=== PATIENT | male | born 1985 | race Caucasian/White ===

== ENCOUNTER → 2024-05-20 08:59 | Outpatient (BNVA) | payer SELFPAY | PROVIDERS: PCP Nurse Practitioner Family; Visit Provider Nurse Practitioner Family | DX: M79.643 Pain in unspecified hand (principal); M79.89 Other specified soft tissue disorders; M25.539 Pain in unspecified wrist; M25.439 Effusion, unspecified wrist | CPT/HCPCS: 73110; 73130 ==

== ENCOUNTER → 2024-11-16 09:14 | Outpatient (BNVA) | payer MEDICAID, SELFPAY | PROVIDERS: PCP Clinical Nurse Specialist Adult Health; Visit Provider Clinical Nurse Specialist Adult Health | DX: M23.92 Unspecified internal derangement of left knee (principal) | CPT/HCPCS: 73562 ==

== ENCOUNTER 2024-11-22 13:20 | Emergency (ER) | payer MEDICAID, SELFPAY ==
[2024-11-22] VITALS (8 sets, daily range): BP systolic 137–182; BP diastolic 87–115; PULSE 52–82; RESP 15–19; TEMP 36.4; O2SAT 95–99; BMI 34.8
[2024-11-22 14:26] LABS: Basophils # 0.1 10^3/uL (0.0-0.1); Basophils % 0.4 %; Eosinophils % 0.1 %; Hematocrit 44.2 % (37-53); Lymphocytes # 1.3 10^3/uL (0.8-4.8); Lymphocytes % 9.5 %; Mean Corpuscular HGB Conc 33.9 g/dL (30-55); Mean Corpuscular Hemoglobin 30.8 pg (27-33); Mean Corpuscular Volume 90.8 fl (82-101); Mean Platelet Volume 9.4 fL (7.4-10.4); Monocytes # 0.3 10^3/uL (0.2-0.9); Monocytes % 2.3 %; Neutrophils # 12.28 10^3/uL (1.8-7.7); Neutrophils % 87.3 %; Nucleated Red Blood Cells % 0 %; Platelet Count 329 10^3/cmm (157-399); Red Blood Count 4.87 10^6/uL (3.85-5.65); Red Cell Distribution Width 12.2 % (12.1-15.1); White Blood Count 14.07 10^3/uL (3.29-11.43)
[2024-11-22 14:44] LABS: Alanine Aminotransferase 30 U/L (0-41); Albumin Level 4.9 g/dL (3.5-5.2); Alkaline Phosphatase 62 U/L (40-130); Anion Gap 18.1 (5-19); Aspartate Amino Transferase 16 U/L (0-40); Blood Urea Nitrogen 12 mg/dL (6-20); Calcium 9.5 mg/dL (8.5-10.5); Carbon Dioxide 23 mmol/L (22-29); Chloride 103 mmol/L (98-107); Creatinine Clr Calc Pharmacy 183.2341; Globulin 3.1 g/dL (1.3-4.6); Glomerular Filtration Rate 126.2 mL/min (90-130); Glucose 128 mg/dL (65-115); Lipase 17 U/L (13-60); Osmolality Calculated 291 mOsm/kg (285-295); Potassium 4.1 mmol/L (3.5-5.1); Sodium 140 mmol/L (136-145); Total Bilirubin 0.8 mg/dL (0.15-1.2)
[2024-11-22] MEDS: sodium chloride 0.9% 1,000 ML 999 ML IV (14:45)
[2024-11-22] MEDS: ondansetron 2 mg/ML SDV 2 mL 4 MG IVP (14:46)
[2024-11-22] MEDS: morphine 4 mg/mL SDV 1 mL IVP (14:47)
--- NOTE | 2024-11-22 14:49 | ED_ITS ---
HPI - Nausea/Vomiting/Diarrhea 2 General: Chief complaint: Nausea/Vomiting/Diarrhea Stated complaint: dizziness, n/v Time Seen by Provider: 11/22/24 13:38 History of Present Illness: 39-year-old male with a history of appen dectomy, obesity, and untreated hypertension who presents emergency department with 12 hours of nausea, vomiting, diarrhea, subjective fever with chills, body aches, headache, mild cough. His significant other is not ill at this point. They have not traveled. They ate the same food yesterday. No chronic abdominal illnesses. Diarrhea is nonbloody and has occurred 4-5 times today. He has not been able to tolerate fluids yet today. He is feeling a bit dehydrated and fatigued. He does endorse abdominal cramping. No sore throat, ear pain, sinus congestion, chest pain, rashes or wounds. Associated symtoms: Denies altered mental status Related Data Previous Rx's ?Medication ?Instructions ?Recorded clobetasol 0.05 % topical cream 1 applic topical DAILY 2 weeks #45 11/12/24 grams diclofenac sodium 1 % topical gel 2 g topical QID #100 grams 11/12/24 (Voltaren Arthritis Pain) dicyclomine 20 mg tablet 20 mg PO QID PRN abdominal p ain 11/22/24 #12 tabs loperamide 2 mg capsule 2 mg PO Q6H PRN loose stool #20 11/22/24 caps ondansetron 4 mg disintegrating 4 mg PO Q6H PRN nausea and 11/22/24 tablet vomiting #14 tabs Allergies Allergy/AdvReac Type Severity Reaction Status Date / Time coconut Allergy Severe ALGY-Anaphy Verified 11/12/24 13:08 laxis Review of Systems 2 General: Reports: 10 or more systems reviewed and unremarkable except in HPI and below PFSH ED 2 PFSH: Medical History (Updated 11/22/24 @ 15:54 by Coy Garcia MD) Nicotine dependence with current use Internal derangement of left knee Eczema Surgical History (Updated 07/22/24 @ 09:19 by Gerardo Douglas NP) Hx of tonsillectomy Hx of appendectomy Family History (Updated 11/12/24 @ 13:38 by Gerardo Douglas NP) Other Breast cancer COPD (chronic obstructive pulmonary disease) Diabetes Hyperlipidemia Hypertension Pancreatitis Denies family history of Anesthesia complication Social History (Updated 11/12/24 @ 13:40 by Gerardo Douglas NP) Smoking and tobacco/nicotine status: current every day tobacco/nicotine user cigarettes Packs smoked per day: 1 [ Other cigarette details: > 20 years pack history] Alcohol intake: never Substance/Drug Use: never Adopted: No Caregiver/support person: No Lives independently: Yes Household members: family Housing: House Marital status: Life Partner Number of children: 4 Highest education level completed: Associate Degree: Occupational, Technical, Vocational Program service: No Current occupational status: unemployed Physical Exam 2 Narrative: EXAM NARRATIVE: Ill but nontoxic. Slight diaphoresis on the forehead. Const: COMMON NORMALS: no limitations, alert and well nourished EXAM LIMITATIONS: no altered mental status HENMT: COMMON NORMALS: normocephalic, atraumatic and external ears normal H EAD & SCALP: normocephalic and atraumatic EXTERNAL EAR: Yes external ears normal MOUTH: no muffled voice Eye: COMMON NORMALS: EOMs intact bilaterally, conjunctivae normal and no scleral icterus CONJUNCTIVA: Yes conjunctivae normal Neck/C-Spine: COMMON NORMALS: no JVD GENERAL: Yes normal visual inspection and Yes trachea midline Resp: COMMON NORMALS: normal respiratory effort, No use of accessory muscles and clear to auscultation bilaterally AUSCULTATION: clear to auscultation bilaterally Cardio: COMMON NORMALS: no JVD, regular rate and regular rhythm RATE: r egular rate RHYTHM: regular rhythm GI: COMMON NORMALS: Soft to palpation and no masses PALPATION: Yes Soft to palpation, Yes Tenderness to palpation present (GI) (Mild diffuse, slightly worse in the upper half of the abdomen.), No Guarding due to palpation present (GI), No Rigid due to palpation, No Hernia present, No Palpable mass present, No Pulsatile mass present and No Ascites present Extremity: COMMON NORMALS: normal to inspection Neuro: COMMON NORMALS: moves all extremities, no focal motor deficits and no sensory deficits noted SENSORIUM/ORIENTATION: Yes alert SPEECH: speech normal Psych: COMMON NORMALS: mental status grossly normal, Normal thought process present, cooperative, normal affect and speech normal SPEECH: Yes normal speech THOUGHT PROCESS: Normal thought process present Skin: COMMON NORMALS: no rashes or lesions noted, turgor normal and no jaundice GENERAL SKIN EXAM: no rashes or lesions noted and turgor normal Course 2 Vital Signs: Vital signs: Vital Signs Temperature 97.5 F L 11/22/24 13:31 Pulse Rate 82 11/22/24 13:31 Respiratory Rate 16 11/22/24 14:47 Blood Pressure 146/113 11/22/24 15:21 Pulse Oximetry 98 11/22/24 13:31 Oxygen Delivery Me thod Room Air 11/22/24 13:31 MDM - Nausea/Vomiting/Diarrhea Medical Decision Making Patient's symptoms are most suggestive of a viral syndrome. Low suspicion for acute abdomen. Plan is to give him IV fluids, dose of Zofran and morphine, check CBC, CMP, lipase. Patient does not endorse any urinary symptoms. He endorses a slight cough but a do not hear any coughing during the history or exam and his lungs are clear. Foodborne illness seems less likely as he and significant other have eaten the same thing and she is not ill at this point. No travel. No history of C. difficile. No recent antibiotic use. Update: White blood cell count is 14,000. This would be an expected finding with fevers, gastroenteritis, vomiting. It is nonspecific CMP is unremarkable. Random glucose is 128. Blood pressure is chronically elevated. Patient was given losartan here. We held his metoprolol as his heart rate came down into the 50s and we did not want to make it any lower. Patient was reassessed. He feels much better after the medications and IV fluids. He feels well enough to go home. We will discharge with Bentyl, Zofran, loperamide to use as needed. I explained that the patient should improve within the next 24 to 48 hours if this is a gastroenteritis. If he is not and getting worse or has any new symptoms he will need reevaluated. Patient agrees to this. Patient also reports he does not want any additional blood pressure medication he will talk with his PCP about it. Medical Records I reviewed the patient's medical records. Lab Data 11/22/24 14:21 11/22/24 14:21 Laboratory Results WBC 14.07 10^3/uL (3.29-11.43) H 11/22/24 14:21 RBC 4.87 10^6/uL (3.85-5.65) 11/22/24 14:21 Hgb 15.00 g/dL (11.27-16.99) 11/22/24 14:21 Hct 44.2 % (37-53) 11/22/24 14:21 MCV 90.8 fl (82-101) 11/22/24 14:21 MCH 30.8 pg (27-33) 11/22/24 14:21 MCHC 33.9 g/dL (30-55) 11/22/24 14:21 RDW 12.2 % (12.1-15.1) 11/22/24 14:21 Plt Count 329 10^3/cmm (157-399) 11/22/24 14:21 MPV 9.4 fL (7.4-10.4) 11/22/24 14:21 Neut % (Auto) 87.3 % 11/22/24 14:21 Lymph % (Auto) 9.5 % 11/22/24 14:21 [place] % (Auto) 2.3 % 11/22/24 14:21 Eos % (Auto) 0.1 % 11/22/24 14:21 Baso % (Auto) 0.4 % 11/22/24 14:21 Neut # (Auto) 12.28 10^3/uL (1.8-7.7) H 11/22/24 14:21 Lymph # (Auto) 1.3 10^3/uL (0.8-4.8) 11/22/24 14:21 [place] # (Auto) 0.3 10^3/uL (0.2-0.9) 11/22/24 14:21 Eos # (Auto) 0.0 10^3/uL (0.0-0.8) 11/22/24 14:21 Baso # (Auto) 0.1 10^3/uL (0.0-0.1) 11/22/24 14:21 Nucleated RBC % (auto) 0 % 11/22/24 14:21 Nucleated RBCs # 0.0 /100WBC 11/22/24 14:21 Sodium 140 mmol/L (136-145) 11/22/24 14:21 Potassium 4.1 mmol/L (3.5-5.1) 11/22/24 14:21 Chloride 103 mmol/L (98-107) 11/22/24 14:21 Carbon Dioxide 23 mmol/L (22-29) 11/22/24 14:21 Anion Gap 18.1 (5-19) 11/22/24 14:21 BUN 12 mg/dL (6-20) 11/22/24 14:21 Creatinine 0.7 mg/dL (0.7-1.2) 11/22/24 14:21 GFR Calculation 126.2 mL/min (90-130) 11/22/24 14:21 Glucose 128 mg/dL (65-115) H 11/22/24 14:21 Calculated Osmolality 291 mOsm/kg (285-295) 11/22/24 14:21 Calcium 9.5 mg/dL (8.5-10.5) 11/22/24 14:21 Total Bilirubin 0.8 mg/dL (0.15-1.2) 11/22/24 14:21 AST 16 U/L (0-40) 11/22/24 14:21 ALT 30 U/L (0-41) 11/22/24 14:21 Alkaline Phosphatase 62 U/L (40-130) 11/22/24 14:21 Total Protein 8.0 g/dL (6.6-8.7) 11/22/24 14:21 Albumin 4.9 g/dL (3.5-5.2) 11/22/24 14:21 Globulin 3.1 g/dL (1.3-4.6) 11/22/24 14:21 Lipase 17 U/L (13-60) 11/22/24 14:21 No radiology studies performed this visit Discharge Plan Discharge Patient Disposition: Home Clinical Impression: Gastroenteritis, Chronic hypertension Condition: Stable Prescriptions: New loperamide 2 mg capsule 2 mg PO Q6H PRN (Reason: loose stool) Qty: 20 0RF dicyclomine 20 mg tablet 20 mg PO QID PRN (Reason: abdominal pain) Qty: 12 0RF ondansetron 4 mg tablet,disintegrating 4 mg PO Q6H PRN (Reason: nausea and vomiting) Qty: 14 0RF No Action diclofenac sodium [Voltaren Arthritis Pain] 1 % gel 2 g topical QID Qty: 100 2RF Rx Instructions: apply to single elbow, wrist or hand; for hand includes palm/fingers/back of hand clobetasol 0.05 % cream 1 applic topical DAILY 14 Days Qty: 45 2RF Discharge Orders: Discharge ED (Routine); Ordered 11/22/24 Ordered By: Coy Garcia Referrals: Gerardo Douglas, PROMOTIONS EXECUTIVE [Primary Care Provider] - 11/24/24 (Nausea, vomiting, diarrhea, subjective fever and chills, abdominal pain) Patient Instructions: Gastroenteritis (ED), Pain Management Activity Restrictions/Additional Instructions: We suspect that this is an infectious nausea vomiting diarrhea and abdominal pain known as gastroenteritis. Most causes are viral. Most cases improve within 48 to 72 hours. If you are having worsening symptoms, not getting better, cannot eat or drink, become dehydrated, having bloody stool, having focal abdominal pain that is localized to 1 area, or otherwise experience new or concerning urgent symptoms then please return to the emergency department. You have been prescribed medicine for abdominal cramping, diarrhea, and nausea to use sparingly as needed. Print Language: Albanian Coding Level of Care Code ED Transit Planning Manager for [place] [facility]
[2024-11-22] MEDS: losartan 50 mg Tablet 25 MG PO (15:21)
[2024-11-22] MEDS: ketorolac 30 mg/mL INJ 15 MG IVP (15:23)
[2024-11-22 16:48] LABS: Troponin(5th) Baseline < 6 ng/L (0-15)
[2024-11-22 17:03] LABS: Troponin 5 2HR Delta 0.00001 ABS# (0-10)
--- NOTE | 2024-11-22 17:30 | ECG_ITS ---
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 Measurements Intervals [place] Rate: 46 P: 9 DC: 168 QRS: 41 QRSD: 86 T: 44 QT: 473 QTc: 418 Interpretive Statements SINUS BRADYCARDIA No previous ECG available for comparison Electronically Signed On 11-22-2024 22:48:47 CDT by Rajiv Devlin M.D. [id number]
== END 2024-11-22 17:59 | disposition home or self-care (01) ==
PROVIDERS: Emergency Provider Emergency Medicine; PCP Clinical Nurse Specialist Adult Health
DX: K52.9 Noninfective gastroenteritis and colitis, unspecified (principal); I10 Essential (primary) hypertension; F17.210 Nicotine dependence, cigarettes, uncomplicated
CPT/HCPCS: 36415; 80053; 83690; 84484; 85025; 93005; 96361; 96374; 96375; 99284; J1885; J2270; J2405; J7030; J9999

== ENCOUNTER → 2024-11-25 10:13 | Outpatient (BNVA) | payer MEDICAID, SELFPAY | PROVIDERS: PCP Clinical Nurse Specialist Adult Health; Visit Provider Clinical Nurse Specialist Adult Health | DX: R10.9 Unspecified abdominal pain (principal); K52.9 Noninfective gastroenteritis and colitis, unspecified | CPT/HCPCS: 74018; 80053; 85025; 85651; 86140 ==

== ENCOUNTER → 2024-12-09 08:38 | Outpatient (BNVA) | payer MEDICAID, SELFPAY | PROVIDERS: PCP Clinical Nurse Specialist Adult Health; Visit Provider Clinical Nurse Specialist Adult Health | DX: I10 Essential (primary) hypertension (principal); K57.92 Diverticulitis of intestine, part unspecified, without perforation or abscess without bleeding | CPT/HCPCS: 80048; 83735 ==

== ENCOUNTER 2025-03-09 13:13 | Outpatient (CLI) | payer MEDICAID, SELFPAY ==
--- NOTE | 2025-03-09 13:24 | XRR_ITS ---
PROCEDURE INFORMATION: Exam: XR Lumbosacral Spine Exam date and time: 03/09/2025 1:39 PM Age: 39 years old Clinical indication: Injury or trauma; Fall; Blunt trauma (contusions or hematomas); Prior surgery; Surgery date: 6+ months; Surgery type: Appendix; Additional info: M54.50 - low back pain, unspecified, he was drinking on March 04 and fell down 5 stairs, hurting his ankle and TECHNIQUE: Imaging protocol: Radiologic exam of the lumbosacral spine. Views: 2 or 3 views. COMPARISON: CR XR KUB [id number] 11/25/2024 10:17 AM FINDINGS: Bones/joints: Lumbar vertebral body heights appear maintained, as does alignment. Partial sacralization L5 on the left, congenital variation. Disc spaces appear maintained, with likely mild narrowing lumbosacral junction. This may be in part related to partial sacralization of L5. No fracture or compression deformity. No significant spondylolisthesis or subluxation. Visualized sacrum appears unremarkable. Soft tissues: Unremarkable. XR/XR lumbar spine 2-3V* [id number] IMPRESSION: No fracture or compression deformity or malalignment.
--- NOTE | 2025-03-09 13:24 | XRR_ITS ---
PROCEDURE INFORMATION: Exam: XR Left Ankle Exam date and time: 03/09/2025 1:39 PM Age: 39 years old Clinical indication: Injury or trauma; Fall; Blunt trauma; Ankle; Left; Additional info: M25.572 - pain in left ankle and joints of left foot, he was drinking and fell down 5 stairs on March 04, hurting his left ankle TECHNIQUE: Imaging protocol: Radiologic exam of the left ankle. Views: 3 or more views. COMPARISON: CR XR knee LT 3V* [id number] 11/16/2024 9:12 AM FINDINGS: Bones/joints: No fracture identified. Ankle joint appears maintained/intact. Ossification is seen adjacent to the tip of the lateral malleolus. This could indicate avulsion injury of acute or chronic nature. Soft tissues: Unremarkable. XR/XR ankle LT min 3V* [id number] IMPRESSION: 1. No fracture identified. Ankle joint appears intact. 2. Rounded ossification adjacent to the tip of the lateral malleolus could indicate avulsion injury with sprain/strain of acute or chronic nature.
== END 2025-03-09 13:14 | disposition home or self-care (01) ==
LOC: RAD 13:15
PROVIDERS: PCP Clinical Nurse Specialist Adult Health; Visit Provider Clinical Nurse Specialist Adult Health
DX: M25.572 Pain in left ankle and joints of left foot (principal); M54.50 Low back pain, unspecified
CPT/HCPCS: 72100; 73610

== ENCOUNTER 2025-04-11 09:24 | Emergency (ER) | payer MEDICAID, SELFPAY ==
[2025-04-11 09:32] VITALS: BP 135/92; PULSE 83; RESP 16; TEMP 36.4; O2SAT 99
--- NOTE | 2025-04-11 09:45 | W.ED.DENTAL ---
HPI - Dental/Oral General: Chief complaint: Dental/Oral Stated complaint: tooth ache Time Seen by Provider: 04/11/25 09:42 Source: patient Mode of arrival: ambulatory Limitations: no limitations History of Present Illness: 39-year-old male states he has had toothache over the last week states he has pain in his right lower molar rates pain a 6 out of 10 denies any abscess denies any trismus. Associated symptoms: Denies fever(s) Related Data Previous Rx's ?Medication ?Instructions ?Recorded clobetasol 0.05 % topical cream 1 applic topical DAILY 2 weeks #45 11/12/24 grams ondansetron 4 mg disintegrating 4 mg PO Q6H PRN nausea and 11/22/24 tablet vomiting #14 tabs diclofenac sodium 1 % topical gel 2 g topical QID #100 grams 12/09/24 (Voltaren Arthritis Pain) naproxen sodium 220 mg capsule 220 mg PO BID pain #60 caps 12/09/24 (Aleve) losartan 25 mg tablet 25 mg PO BID #180 tabs 01/08/25 cyclobenzaprine 5 mg tablet 5 mg PO TID PRN muscle spasm #45 03/09/25 tabs lidocaine 5 % topical patch 2 patch topical DAILY #15 ea 03/09/25 cephalexin 500 mg capsule 500 mg PO TID 7 days #21 caps 04/11/25 naproxen 500 mg tablet (Naprosyn) 500 mg PO BID PRN pain #20 tabs 04/11/25 Allergies Allergy/AdvReac Type Severity Reaction Status Date / Time coconut Allergy Severe ALGY-Anaphy Verified 03/09/25 10:45 laxis Review of Systems Const: Denies: fever(s), chills, body aches or change in appetite ENMT: Reports: dental pain; Denies: throat pain Card: Denies: chest pain Resp: Denies: dyspnea GI: Denies: abdominal pain, nausea, vomiting or diarrhea : Denies: dysuria Musc: Denies: neck pain or back pain Skin/Breast: Denies: rash Neuro: Denies: headache(s) PFSH ED PFSH: Medical History Seasonal allergies Diverticulitis Hx of colonoscopy 2021, negative Essential hypertension Nicotine dependence with current use Internal derangement of left knee Eczema Surgical History Hx of tonsillectomy Hx of appendectomy Family History Other Breast cancer COPD (chronic obstructive pulmonary disease) Diabetes Hyperlipidemia Hypertension Pancreatitis Denies family history of Anesthesia complication Social History Smoking and tobacco/nicotine status: current every day tobacco/nicotine user cigarettes Packs smoked per day: 1 [ Other cigarette details: > 20 years pack history] Alcohol intake: never Substance/Drug Use: never Adopted: No Caregiver/support person: No Lives independently: Yes Household members: family Housing: House Marital status: Life Partner Number of children: 4 Highest education level completed: Associate Degree: Occupational, Technical, Vocational Program service: No Current occupational status: unemployed Physical Exam Const: COMMON NORMALS: no acute distress, patient oriented x3 and healthy appearing HENMT: COMMON NORMALS: normocephalic and atraumatic HEAD & SCALP: normocephalic and atraumatic OTHER: Tenderness over right lower molar no abscess or trismus Eye: COMMON NORMALS: conjunctivae normal CONJUNCTIVA: Yes conjunctivae normal Neck/C-Spine: COMMON NORMALS: full ROM and supple Chest: COMMONS NORMALS: normal inspection of the chest Resp: COMMON NORMALS: normal respiratory effort Cardio: COMMON NORMALS: regular rate RATE: regular rate Extremity: COMMON NORMALS: normal to inspection and full ROM Neuro: COMMON NORMALS: patient oriented x3, moves all extremities and no focal motor deficits Psych: COMMON NORMALS: mental status grossly normal, Normal thought process present and cooperative THOUGHT PROCESS: Normal thought process present Skin: COMMON NORMALS: no rashes or lesions noted and no wounds GENERAL SKIN EXAM: no rashes or lesions noted Course Vital Signs: Vital signs: Vital Signs Temperature 97.5 F L 04/11/25 09:32 Pulse Rate 83 04/11/25 09:32 Respiratory Rate 16 04/11/25 09:32 Blood Pressure 135/92 04/11/25 09:32 Pulse Oximetry 99 04/11/25 09:32 Oxygen Delivery Me thod Room Air 04/11/25 09:32 MDM - Dental/Oral Medical Decision Making Patient presents for dental pain we will start him on antibiotics he stable for discharge follow-up PCP return if worsening. Medical Records I reviewed the patient's medical records. No radiology studies performed this visit Discharge Plan Discharge Patient Disposition: Home Clinical Impression: Toothache Condition: Stable Prescriptions: New cephalexin 500 mg capsule 500 mg PO TID 7 Days Qty: 21 0RF naproxen [Naprosyn] 500 mg tablet 500 mg PO BID PRN (Reason: pain) Qty: 20 0RF No Action diclofenac sodium [Voltaren Arthritis Pain] 1 % gel 2 g topical QID Qty: 100 2RF Rx Instructions: apply to single elbow, wrist or hand; for hand includes palm/fingers/back of hand naproxen sodium [Aleve] 220 mg capsule 220 mg PO BID Qty: 60 0RF cyclobenzaprine 5 mg tablet 5 mg PO TID PRN (Reason: muscle spasm) Qty: 45 0RF lidocaine 5 % adhesive patch,medicated 2 patch topical DAILY Qty: 15 0RF Rx Instructions: leave on most painful area for up to 12 hrs clobetasol 0.05 % cream 1 applic topical DAILY 14 Days Qty: 45 2RF losartan 25 mg tablet 25 mg PO BID Qty: 180 3RF ondansetron 4 mg tablet,disintegrating 4 mg PO Q6H PRN (Reason: nausea and vomiting) Qty: 14 0RF Discharge Orders: Discharge ED (Routine); Ordered 04/11/25 Ordered By: Jennifer Moreno Referrals: Gerardo Douglas, BUSINESS ADMINISTRATION INSTRUCTOR [Primary Care Provider, Family Practice] Discharge Diet: Advance as tolerated Discharge Activity: Resume usual activity Patient Instructions: Toothache (ED) Print Language: Citizen Of [place] Coding Level of Care Code ED 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
[2025-04-11] MEDS: HYDROcodone-acetaminophen 5-325 mg Tablet 1 TAB PO (10:00)
[2025-04-11 10:05] VITALS: BP 135/92; PULSE 83; O2SAT 99
== END 2025-04-11 10:09 | disposition home or self-care (01) ==
PROVIDERS: Emergency Provider Emergency Medicine; PCP Clinical Nurse Specialist Adult Health
DX: K08.89 Other specified disorders of teeth and supporting structures (principal); I10 Essential (primary) hypertension; F17.210 Nicotine dependence, cigarettes, uncomplicated; Z79.899 Other long term (current) drug therapy
CPT/HCPCS: 99283; J9999

== ENCOUNTER → 2025-04-12 09:38 | Outpatient (BNVA) | payer MEDICAID, SELFPAY | PROVIDERS: PCP Clinical Nurse Specialist Adult Health; Visit Provider Clinical Nurse Specialist Adult Health | DX: M25.572 Pain in left ankle and joints of left foot (principal) | CPT/HCPCS: 73610 ==

== ENCOUNTER 2025-04-20 09:52 | Emergency (ER) | payer MEDICAID, SELFPAY ==
[2025-04-20 09:52] VITALS: BP 175/119; PULSE 64; RESP 14; TEMP 36.9; O2SAT 97; BMI 34.8
--- NOTE | 2025-04-20 09:54 | ECG_ITS ---
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 Measurements Intervals [place] Rate: 56 P: 11 [place]: 157 QRS: 36 QRSD: 90 T: 30 QT: 428 QTc: 416 Interpretive Statements SINUS BRADYCARDIA Compared to ECG 11/22/2024 16:17:53 No significant changes Electronically Signed On 04-24-2025 09:12:04 CDT by Sebastian Leon M.D. [id number]
[2025-04-20 10:00] VITALS: BP 178/123; PULSE 61; O2SAT 99
--- NOTE | 2025-04-20 10:11 | ED_ITS ---
HPI - General Adult 2 General: Chief complaint: General Medical Stated complaint: Dilip Time Seen by Provider: 04/20/25 09:54 History of Present Illness: 39-year-old male presents emergency room with report of a low heart rate. He was seen at the clinic this morning they reported a heart rate in the 40s. He is hypertensive here reviewed the office note he was hypertensive at the office as well as a blood pressure 182/110. He was given atropine 1 mg by EMS. He is not on any negative inotropes at this time. He is complaining of nausea and vomiting had several episodes of nausea while here. He has not any hematemesis or coffee-ground emesis. Associated symptoms: Deny chest pain, dyspnea or rash Related Data Home Medications ?Medication ?Instructions ?Recorded ?Confirmed clobetasol 0.05 % topical cream 1 applic topical DAILY PRN Itching 04/20/25 04/20/25 diclofenac sodium 1 % topical gel 2 g topical QID PRN joint pain 04/20/25 04/20/25 (Voltaren Arthritis Pain) Previous Rx's ?Medication ?Instructions ?Recorded ondansetron 4 mg disintegrating 4 mg PO Q6H PRN nausea and 11/22/24 tablet vomiting #14 tabs losartan 25 mg tablet 25 mg PO BID #180 tabs 01/08 cyclobenzaprine 5 mg tablet 5 mg PO TID PRN muscle spa sm #45 03/09/25 tabs lidocaine 5 % topical patch 2 patch topical DAILY #15 ea 03/09/25 naproxen 500 mg tablet (Naprosyn) 500 mg PO BID PRN pa in #20 tabs 04/11/25 amlodipine 5 mg tablet 5 mg PO DAILY #30 tabs 04/20 promethazine 25 mg tablet 25 mg PO Q6H PRN nausea and 04/20/25 vomiting #20 tabs Allergies Allergy/AdvReac Type Severity Reaction Status Date / Time coconut Allergy Severe ALGY-Anaphy Verified 04/20/25 08:42 laxis Review of Systems 2 Const: Denies: fever(s) or chills Card: Denies: chest pain Resp: Denies: dyspnea GI: Denies: abdominal pain : Denies: dysuria, urinary frequency or urinary urgency Musc: Denies: neck pain or back pain Skin/Breast: Denies: rash PFSH ED 2 PFSH: Medical History Seasonal allergies Diverticulitis Hx of colonoscopy 2021, negative Essential hypertension Nicotine dependence with current use Internal derangement of left knee Eczema Surgical History Hx of tonsillectomy Hx of appendectomy Family History Other Breast cancer COPD (chronic obstructive pulmonary disease) Diabetes Hyperlipidemia Hypertension Pancreatitis Denies family history of Anesthesia complication Social History Smoking and tobacco/nicotine status: current every day tobacco/nicotine user cigarettes Packs smoked per day: 1 [ Other cigarette details: > 20 years pack history] Alcohol intake: never Substance/Drug Use: never Adopted: No Caregiver/support person: No Lives independently: Yes Household members: family Housing: House Marital status: Life Partner Number of children: 4 Highest education level completed: Associate Degree: Occupational, Technical, Vocational Program service: No Current occupational status: unemployed Physical Exam 2 Const: COMMON NORMALS: no acute distress GENERAL APPEARANCE: cooperative and comfortable ORIENTATION/CONSCIOUSNESS: Yes awake, Yes oriented to person, Yes oriented to place and Yes oriented to time HENMT: COMMON NORMALS: normocephalic, atraumatic and hearing grossly normal bilaterally HEAD & SCALP: normocephalic and atraumatic Resp: COMMON NORMALS: normal respiratory effort, No retractions, No use of accessory muscles and clear to auscultation bilaterally AUSCULTATION: clear to auscultation bilaterally Cardio: COMMON NORMALS: regular rate, regular rhythm and No murmurs present (Cardio) RATE: regular rate RHYTHM: regular rhythm GI: COMMON NORMALS: Soft to palpation and No hepatosplenomegaly present A USCULTATION: Yes normoactive bowel sounds PALPATION: Yes Soft to palpation, No Tenderness to palpation present (GI), No Guarding due to palpation present (GI) and Yes No hepatosplenomegaly present Extremity: COMMON NORMALS: normal to inspection, capillary refill normal, no clubbing, cyanosis or edema, no calf tenderness and no pedal edema Neuro: SENSORIUM/ORIENTATION: Yes oriented to person, Yes oriented to place and Yes oriented to time Skin: COMMON NORMALS: no rashes or lesions noted GENERAL SKIN EXAM: no rashes or lesions noted Course 2 Vital Signs: Vital signs: Vital Signs Temperature 98.4 F 04/20/25 09:52 Pulse Rate 64 04/20/25 09:52 Respiratory Rate 14 04/20/25 09:52 Blood Pressure 175/119 04/20/25 09:52 Pulse Oximetry 97 04/20/25 09:52 Oxygen Delivery Me thod Room Air 04/20/25 09:52 MDM - General Adult Medical Decision Making Symptoms improved after Haldol and Ativan for his nausea. Blood pressures improved as well. The blood pressure was actually elevated even in the clinic when he was reportedly bradycardic he was given atropine with elevated blood pressure by EMS blood pressure remained elevated all time he was here we will discharge him home at this point start him on amlodipine additionally will have him follow-up with his primary care doctor. I did start him on amlodipine 5 mg daily continue his losartan. Ondansetron as needed for nausea vomiting. Recheck as worsening symptoms or recurrence. Medical Records I reviewed the patient's medical records. Lab Data I reviewed the patient's lab results. 04/20/25 10:31 04/20/25 10:31 Laboratory Results WBC 11.06 10^3/uL (3.29-11.43) 04/20/25 10:31 RBC 4.83 10^6/uL (3.85-5.65) 04/20/25 10:31 Hgb 15.30 g/dL (11.27-16.99) 04/20/25 10:31 Hct 43.2 % (37-53) 04/20/25 10:31 MCV 89.4 fl (82-101) 04/20/25 10:31 MCH 31.7 pg (27-33) 04/20/25 10:31 MCHC 35.4 g/dL (30-55) 04/20/25 10:31 RDW 12.2 % (12.1-15.1) 04/20/25 10:31 Plt Count 312 10^3/cmm (157-399) 04/20/25 10:31 MPV 9.5 fL (7.4-10.4) 04/20/25 10:31 Neut % (Auto) 80.0 % 04/20/25 10:31 Lymph % (Auto) 13.5 % 04/20/25 10:31 [place] % (Auto) 4.2 % 04/20/25 10:31 Eos % (Auto) 1.4 % 04/20/25 10:31 Baso % (Auto) 0.5 % 04/20/25 10:31 Neut # (Auto) 8.85 10^3/uL (1.8-7.7) H 04/20/25 10:31 Lymph # (Auto) 1.5 10^3/uL (0.8-4.8) 04/20/25 10:31 [place] # (Auto) 0.5 10^3/uL (0.2-0.9) 04/20/25 10:31 Eos # (Auto) 0.2 10^3/uL (0.0-0.8) 04/20/25 10:31 Baso # (Auto) 0.1 10^3/uL (0.0-0.1) 04/20/25 10:31 Nucleated RBC % (auto) 0 % 04/20/25 10:31 Nucleated RBCs # 0.0 /100WBC 04/20/25 10:31 Sodium 136 mmol/L (136-145) 04/20/25 10:31 Potassium 4.1 mmol/L (3.5-5.1) 04/20/25 10:31 Chloride 101 mmol/L (98-107) 04/20/25 10:31 Carbon Dioxide 22 mmol/L (22-29) 04/20/25 10:31 Anion Gap 17.1 (5-19) 04/20/25 10:31 BUN 14 mg/dL (6-20) 04/20/25 10:31 Creatinine 0.7 mg/dL (0.7-1.2) 04/20/25 10:31 GFR Calculation 126.2 mL/min (90-130) 04/20/25 10:31 Glucose 144 mg/dL (65-115) H 04/20/25 10:31 Calculated Osmolality 285 mOsm/kg (285-295) 04/20/25 10:31 Calcium 9.5 mg/dL (8.5-10.5) 04/20/25 10:31 Total Bilirubin 0.6 mg/dL (0.15-1.2) 04/20/25 10:31 AST 16 U/L (0-40) 04/20/25 10:31 ALT 34 U/L (0-41) 04/20/25 10:31 Alkaline Phosphatase 63 U/L (40-130) 04/20/25 10:31 Total Protein 7.7 g/dL (6.6-8.7) 04/20/25 10:31 Albumin 4.8 g/dL (3.5-5.2) 04/20/25 10:31 Globulin 2.9 g/dL (1.3-4.6) 04/20/25 10:31 Lipase 19 U/L (13-60) 04/20/25 10:31 Urine Color Yellow (Yellow) 04/20/25 11:26 Urine Appearance Clear (CLEAR) 04/20/25 11:26 Urine pH >=9.0 (5-7) A 04/20/25 11:26 Ur Specific [place] 1.020 (1.005-1.030) 04/20/25 11:26 Urine Protein 1+ (Negative) A 04/20/25 11:26 Urine Glucose (UA) Negative (Normal) 04/20/25 11:26 Urine Ketones Negative (Negative) 04/20/25 11:26 Urine Blood Negative (Negative) 04/20/25 11:26 Urine Nitrate Negative (Negative) 04/20/25 11:26 Urine Bilirubin Negative (Negative) 04/20/25 11:26 Urine Urobilinogen 1.0 mg/dL (Negative) 04/20/25 11:26 Ur Leukocyte Esterase Negative (Negative) 04/20/25 11:26 Urine RBC 0-4 /hpf (0-2) H 04/20/25 11:26 Urine WBC None /hpf (0-5) 04/20/25 11:26 Ur Squamous Epith Cells None /hpf (0-5) 04/20/25 11:26 Urine Bacteria None /hpf (NONE) 04/20/25 11:26 Urine Mucus None /hpf 04/20/25 11:26 Urine Opiates Screen Negative ng/mL (Negative) 04/20/25 11:26 Ur Barbiturates Screen Negative ng/mL (Negative) 04/20/25 11:26 Ur Phencyclidine Scrn Negative ng/mL (Negative) 04/20/25 11:26 Ur Amphetamines Screen Negative ng/mL (Negative) 04/20/25 11:26 U Benzodiazepines Scrn Negative ng/mL (Negative) 04/20/25 11:26 Urine Cocaine Screen Negative ng/mL (Negative) 04/20/25 11:26 U Marijuana (THC) Screen Positive ng/mL (Negative) H 04/20/25 11:26 No radiology studies performed this visit Discharge Plan Discharge Patient Disposition: Home Clinical Impression: Essential hypertension, Cannabinoid hyperemesis syndrome, Bradycardia Condition: Stable Prescriptions: New promethazine 25 mg tablet 25 mg PO Q6H PRN (Reason: nausea and vomiting) Qty: 20 0RF amlodipine 5 mg tablet 5 mg PO DAILY Qty: 30 0RF No Action cyclobenzaprine 5 mg tablet 5 mg PO TID PRN (Reason: muscle spasm) Qty: 45 0RF lidocaine 5 % adhesive patch,medicated 2 patch topical DAILY Qty: 15 0RF Rx Instructions: leave on most painful area for up to 12 hrs losartan 25 mg tablet 25 mg PO BID Qty: 180 3RF clobetasol 0.05 % cream 1 applic topical DAILY PRN (Reason: Itching) diclofenac sodium [Voltaren Arthritis Pain] 1 % gel 2 g topical QID PRN (Reason: joint pain) Rx Instructions: apply to single elbow, wrist or hand; for hand includes palm/fingers/back of hand ondansetron 4 mg tablet,disintegrating 4 mg PO Q6H PRN (Reason: nausea and vomiting) Qty: 14 0RF naproxen [Naprosyn] 500 mg tablet 500 mg PO BID PRN (Reason: pain) Qty: 20 0RF Discharge Orders: Discharge ED (Routine); Ordered 04/20/25 Ordered By: Tello Carrion Referrals: Gerardo Douglas, [facility] [Primary Care Provider, Family Practice] Discharge Diet: Clear Liquid Discharge Activity: Increase activity as tolerated Patient Instructions: Opioid Safety, Pain Management, Patient Portal & Nehal Instructions Activity Restrictions/Additional Instructions: Thank you for choosing [facility] for your healthcare needs today. It is very important that you follow up as instructed or that you return to the Emergency Department should you have concerns or if your condition changes or worsens in any way. You were seen in the emergency room with nausea vomiting abdominal cramping elevated blood pressures and some bradycardia. Your lab work was unremarkable. Your blood pressure remained elevated you did show persistent sinus bradycardia but no hypotension. You were given medications for nausea vomiting which improved your symptoms. Suspect some of your symptoms of abdominal cramping nausea vomiting caused by hyperemesis cannabinoid syndrome your laboratory work was unremarkable. I do recommend that you start on blood pressure medications will start on amlodipine 5 mg daily give you promethazine to use as needed for nausea and vomiting will set you up for 72-hour Holter monitor and have you follow-up with your primary care doctor. 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
[2025-04-20 10:30] VITALS: BP 189/116; PULSE 60; O2SAT 100
[2025-04-20 10:52] LABS: Hematocrit 43.2 % (37-53); Hemoglobin 15.30 g/dL (11.27-16.99); Mean Corpuscular HGB Conc 35.4 g/dL (30-55); Mean Corpuscular Hemoglobin 31.7 pg (27-33); Mean Corpuscular Volume 89.4 fl (82-101); Nucleated Red Blood Cells % 0 %; Platelet Count 312 10^3/cmm (157-399); Red Blood Count 4.83 10^6/uL (3.85-5.65); White Blood Count 11.06 10^3/uL (3.29-11.43)
[2025-04-20 11:07] VITALS: BP 180/116; PULSE 51; O2SAT 100
[2025-04-20] MEDS: LORazepam 1 MG/0.5 ML injection 0.5 MG IVP (11:08)
[2025-04-20] MEDS: haloperidol inj 5 mg/mL INJ 1 mL 2.5 MG IVP (11:08)
[2025-04-20 11:12] LABS: Alanine Aminotransferase 34 U/L (0-41); Albumin Level 4.8 g/dL (3.5-5.2); Alkaline Phosphatase 63 U/L (40-130); Anion Gap 17.1 (5-19); Aspartate Amino Transferase 16 U/L (0-40); Blood Urea Nitrogen 14 mg/dL (6-20); Calcium 9.5 mg/dL (8.5-10.5); Carbon Dioxide 22 mmol/L (22-29); Chloride 101 mmol/L (98-107); Creatinine Clr Calc Pharmacy 183.2341; Globulin 2.9 g/dL (1.3-4.6); Glucose 144 mg/dL (65-115); Lipase 19 U/L (13-60); Osmolality Calculated 285 mOsm/kg (285-295); Potassium 4.1 mmol/L (3.5-5.1); Sodium 136 mmol/L (136-145); Total Protein 7.7 g/dL (6.6-8.7)
[2025-04-20 11:30] VITALS: BP 152/109; PULSE 76; O2SAT 98
[2025-04-20 11:35] LABS: Glucose Urine UA Negative (Normal); Nitrate Urine Negative (Negative); Specific Gravity, Urine 1.020 (1.005-1.030)
[2025-04-20 11:38] LABS: Add Urine Microscopic? YES
[2025-04-20 11:42] LABS: PCP Screen Urine Negative (Negative)
[2025-04-20 12:15] VITALS: BP 169/92; PULSE 56; O2SAT 95
[2025-04-20 19:09] LABS: Estmated Average Glucose 114; Hemoglobin A1C 5.6 % (4.0-6.0)
--- NOTE | 2025-04-22 09:10 | DCPLANNER ---
messaged heart care for holter
== END 2025-04-20 12:15 | disposition home or self-care (01) ==
PROVIDERS: Emergency Provider Family Medicine; PCP Clinical Nurse Specialist Adult Health
DX: I10 Essential (primary) hypertension (principal); R00.1 Bradycardia, unspecified; R11.2 Nausea with vomiting, unspecified; F12.90 Cannabis use, unspecified, uncomplicated; F17.210 Nicotine dependence, cigarettes, uncomplicated
CPT/HCPCS: 36415; 80053; 80306; 81001; 83036; 83690; 85025; 85651; 86140; 87086; 93005; 96374; 96375; 99284; J1630; J2060